=== PATIENT | male | born 1985 | race Caucasian/White ===

== ENCOUNTER 2016-10-06 17:31 | Emergency (ER) | payer OTHER ==
[~2016-10-06] VITALS: Ht 167.6 cm; Wt 89.8 kg
[~2016-10-06 17:31] MED LIST: ACET-1256 PO; AMPH20TA2 PO; FLUO20CA35 PO; NAPR-1169 PO
[2016-10-06 17:39] VITALS: TEMP 37.1; Ht 167.6 cm; Wt 89.8 kg
--- NOTE | 2016-10-06 18:34 | DIAGNOSTIC IMAGING REPORT ---
LEFT SHOULDER MIN 2 VIEWS ROUTINE CLINICAL HISTORY: L shoulder/clavicle pain pain COMPARISON: None. DISCUSSION: The bones and joint spaces appear intact. There is no evidence of fracture, dislocation or bony disease. There is no evidence for soft tissue swelling. IMPRESSION: Negative study. The above report was generated using voice recognition software. It may contain grammatical, syntax or spelling errors. Electronically signed by: Oneil Hartman M.D. 10/06/2016 6:33 PM Dictated Date/Time: 10/06/2016 6:28 PM
--- NOTE | 2016-10-06 18:35 | DIAGNOSTIC IMAGING REPORT ---
LEFT CLAVICLE CLINICAL HISTORY: L shoulder/clavicle pain trauma. Pain. COMPARISON: None. DISCUSSION: The bones and joint spaces appear intact. There is no evidence of fracture, dislocation or bony disease. There is no evidence for soft tissue swelling. IMPRESSION: Negative study. The above report was generated using voice recognition software. It may contain grammatical, syntax or spelling errors. Electronically signed by: Oneil Hartman M.D. 10/06/2016 6:33 PM Dictated Date/Time: 10/06/2016 6:33 PM
[2016-10-06 19:33] VITALS: BP 148/72; PULSE 86; O2SAT 98
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
== END 2016-10-06 19:34 | disposition home or self-care (01) ==
LOC: C.EDB 17:35 → C.EDD 19:34
DX: S40.012A Contusion of left shoulder, initial encounter (principal); V68.5XXA Driver of heavy transport vehicle injured in noncollision transport accident in traffic accident, initial encounter; Y93.89 Activity, other specified; Y99.0 Civilian activity done for income or pay; F17.200 Nicotine dependence, unspecified, uncomplicated; Z98.890 Other specified postprocedural states; Z83.3 Family history of diabetes mellitus; Z82.49 Family history of ischemic heart disease and other diseases of the circulatory system